=== PATIENT | female | born 1945 | race Caucasian/White ===

== ENCOUNTER → 2023-09-20 12:38 | Outpatient (REF) | payer OTHER, SELFPAY | LOC: HWWDC 12:38 | PROVIDERS: ATTENDING PHYSICIAN Internal Medicine | DX: Z12.31 Encounter for screening mammogram for malignant neoplasm of breast (principal) | CPT/HCPCS: 77063; 77067 ==

== ENCOUNTER → 2024-02-24 14:46 | Outpatient (REF) | payer OTHER, SELFPAY | LOC: HWRAD 14:46 | PROVIDERS: ATTENDING PHYSICIAN Internal Medicine | DX: M85.89 Other specified disorders of bone density and structure, multiple sites (principal) | CPT/HCPCS: 77080 ==

== ENCOUNTER → 2024-06-19 13:05 | Outpatient (REF) | payer OTHER, SELFPAY | LOC: RAD 13:05 | PROVIDERS: ATTENDING PHYSICIAN Internal Medicine | DX: R10.31 Right lower quadrant pain (principal) | CPT/HCPCS: 74177; Q9967 ==

== ENCOUNTER 2024-06-19 21:14 | Day surgery (SDC) | payer OTHER, SELFPAY ==
[2024-06-19] VITALS (7 sets, daily range): BP systolic 074–185; BP diastolic 60–95; BMI 26.5; BMI 26.7
[2024-06-19 18:21] LABS: % Basophils 0.2 % (0-2); % Eosinophils 0.3 % (0-6); % Immature Granulocytes 0.4 % (0-0.5); % Lymphocytes 9.7 % (20.5-51.1); % Monocytes 6.5 % (1.7-9.3); % Neutrophils 82.9 % (42.2-75.2); Absolute Immature Granulocytes 0.1 10^3/uL (0-0.05); Absolute Lymphocytes 1.3 10^3/uL (1.2-3.4); Absolute Monocytes 0.8 10^3/uL (0.1-0.6); Absolute Neutrophils 10.7 10^3/uL (1.4-6.5); Hematocrit 41.6 % (37.0-47.0); Hemoglobin 14.8 g/dL (12.0-16.0); Mean Corp Hgb Conc. 35.6 g/dL (33.0-37.0); Mean Corpuscular Hgb 30.9 pg (27.0-31.0); Mean Corpuscular Volume 86.8 fL (81.0-99.0); Nucleated Red Blood Cells % 0 %; Platelet Count 221 10^3/uL (130-400); Red Blood Cell Count 4.79 10^6/uL (4.20-5.40); Red Cell Dist. Width 13.2 % (11.5-14.5); White Blood Cell Count 12.9 10^3/uL (4.8-10.8)
[2024-06-19 18:46] LABS: ALT (SGPT) 49 U/L (0-35); AST (SGOT) 32 U/L (14-36); Albumin 4.7 g/dl (3.5-5.0); Alkaline Phosphatase 80 U/L (38-126); Blood Urea Nitrogen 14 mg/dl (7-17); Calcium 10.3 mg/dl (8.4-10.2); Carbon Dioxide 29 mmol/L (22-30); Chloride 88 mmol/L (98-107); Glucose 138 mg/dl (70-99); Potassium 3.8 mmol/L (3.5-5.1); Sodium 127 mmol/L (135-145); Total Bilirubin 1.7 mg/dl (0.2-1.3); Total Protein 7.7 g/dl (6.3-8.2); eGFR > 60.00
--- NOTE | 2024-06-19 18:53 | EDRN ---
this RN called IV team, this RN attempted to place PIV x2 with no success
--- NOTE | 2024-06-19 19:10 | ED.GENMED ---
History of Present Illness
General
Chief Complaint: Abdominal Pain
Source: patient
Exam Limitations: none
Time Seen by Provider: 06/19/24 18:42
Nursing documentation reviewed up to this point in time: agreed with
History of Present Illness
History of Present Illness:
The patient is a 78-year-old female with history hypertension, hyperlipidemia, hypothyroid presenting to the emergency department with right lower abdominal pain and CT scan performed outpatient which showed appendicitis. Patient states yesterday
afternoon she started with pain in her mid abdomen which then seem to migrate down to the right lower quadrant. She states the pain is a 5/10 in intensity. Patient denies any associated fever, chills, nausea, or vomiting. She has had little
appetite and states she last ate a very thin small piece of toast around 4 AM this morning. She has not had anything to eat/drink since.
Patient saw her primary care this afternoon who referred her to CAT scan for further evaluation. She was contacted that her CT scan showed appendicitis and that she should head to the emergency department.
Patient is on any blood thinners. No history of abdominal surgeries.
Review of Systems
Review of Systems
Allergies reviewed?: Yes
All Other Systems: ROS reviewed and negative except as documented in HPI and ROS
Phy Exam
Physical Exam
Physical Exam:
Vitals: Hypertensive, otherwise stable vital signs. Afebrile
General: Patient is well appearing, no acute distress. Nontoxic appearing
Skin: Warm and dry, no rashes or lesions
Head: Normocephalic, atraumatic
Eyes: Sclera nonicteric. EOMs intact. No nystagmus.
Throat: Protecting airway
Neck: Normal ROM, no cervical spine tenderness, no meningismus
Cardiac: Regular rate and rhythm, no murmurs.
Pulm: Normal respiratory effort, no wheezes, rales, rhonchi heard on exam.
Abdomen: Abdomen soft. Moderate tenderness in right lower quadrant McBurney's point with voluntary guarding. No rebound tenderness. No CVA tenderness or rash.
Extremities: No evidence of cyanosis or edema. Palpable distal pulses bilaterally
Neuro: AAOx3. Grossly intact.
Psychiatric: Normal affect.
Course
Orders/Labs/Results
Orders:
Orders
06/19/24 Dinner
NPO
Allow oral meds: Yes
Allow clear liquids: No
NPO with Ice Chips: Yes
06/19/24 18:16
CMP [Comprehensive Metabolic Panel] Urgent
Complete Blood Count/With Diff Urgent
06/19/24 19:05
Electrocardiogram (*1) Urgent
Reason for Study: PreOp
EKG- Treatment ONCE
0.9% Sodium Chloride 1000 ml [Nss] 1,000 ml IV BOLUS
Ketorolac [Toradol] 15 mg IV NOW STA
06/19/24 19:43
Piperacillin/Tazo 3.375 Gram [Zosyn] 3.375 gram in 50 ml IV NOW
06/19/24 20:43
Admit/Transfer Patient As Directed
Co-Sign Provider:
Level of Care: Inpatient admission
Assign to:: Medical/Surgical
Physician / Group: General Surgery
Diagnosis: Acute appendicitis
Reason for Hospitalization: Pain control, IV antibiotics, Surgery
Expected length of stay greater than two midnights?: Yes
ELOS- Estimated Length of Stay in days: 2
I certify the patient meets the requirements for IP care: Yes
06/19/24 20:44
PRN Pain Medication Management As Directed
May give lesser potent ordered pain med per pt: Yes
preference::
Protocol:: Medication orders for pain may be administered in a
manner that supports deferring to patient preference
when the pt is:
- Requesting an ordered lesser potent pain medication.
Least to most potent pain medications are defined
as: acetaminophen < NSAID < tramadol < opioids
(morphine, oxycodone, hydromorphone).
- Requesting a lesser dose of the same medication IF
ORDERED.
- Requesting a less intrusive route of administration
if both routes are prescribed by the provider (PO <
IV).
06/19/24 20:46
Code Status As Directed
Resuscitation Status: Full Code
06/19/24 22:00
Flush (0.9% Sodium Chloride) [Flush (Nss)] See Dose Instructions IV PER PROTOCOL
06/19/24 22:03
0.9% Sodium Chloride 1000 ml [Nss] 1,000 ml IV 100 mls/hr
Acetaminophen [Tylenol] 650 mg PO Q4HPRN PRN
Benzocaine/Menthol [Anesthetic Lozenge] 1 lozenge PO Q4HPRN PRN
Gabapentin [Neurontin] 100 mg PO BID
Melatonin 5 mg PO HSPRN PRN
Ondansetron Injectable [Zofran] 4 mg IV Q6HPRN PRN
06/19/24 22:03
Activity As Directed
Activity Level: Out of Bed-Early Mobility
Bladder Scan As Directed
Follow Bladder Retention/Intermittent Cath Algorithm?: Yes
PRN if no void in __ hours: 6
Frequency: Per Retention Algorithm
If Bladder Scan Result >: 400
then:: Straight cath
Intake/ Output As Directed
Frequency: Per unit guidelines
Pneumatic Compression Sleeves As Directed
Type: Knee high
Straight Cath As Directed
Frequency: Per Retention Algorithm
Additional Instructions: as per intermittent urinary catheter algorithm
Vital Signs As Directed
Frequency: Per unit guidelines
Weight As Directed
Frequency: Once
DX Deep Vein Thrombosis Video Routine
06/19/24 22:08
HYDROmorphone [Dilaudid] 0.25 mg IV Q2HPRN PRN
HYDROmorphone [Dilaudid] 0.5 mg IV Q2HPRN PRN
06/20/24 06:00
Basic Metabolic Panel IN AM
Complete Blood Count/No Diff IN AM
06/20/24 08:00
Artificial Tears (Pf) [Refresh Eye Drops (Pf)] 2 drops BOTH EYES BID
Famotidine [Pepcid] 20 mg PO BID
Metoprolol Xl [Toprol Xl] 50 mg PO DAILY
Rosuvastatin Calcium [Crestor] 5 mg PO DAILY
Venlafaxine Extended Release [Effexor Xr] 75 mg PO DAILY
06/20/24 18:00
Enoxaparin Sodium [Lovenox] 40 mg SC QPM
Abnormal Lab Results
06/19/24
18:16
WBC 12.9 H 10^3/uL
(4.8-10.8)
Abs Immat Gran (auto) 0.1 H 10^3/uL
(0-0.05)
Absolute Neuts (auto) 10.7 H 10^3/uL
(1.4-6.5)
Absolute Monos (auto) 0.8 H 10^3/uL
(0.1-0.6)
Neutrophils % 82.9 H %
(42.2-75.2)
Lymphocytes % 9.7 L %
(20.5-51.1)
Sodium 127 L mmol/L
(135-145)
Chloride 88 L mmol/L
(98-107)
Glucose 138 H mg/dl
(70-99)
Calcium 10.3 H mg/dl
(8.4-10.2)
Total Bilirubin 1.7 H mg/dl
(0.2-1.3)
ALT 49 H U/L
(0-35)
06/19/24 18:16
06/19/24 18:16
Vital Signs
Initial and Last Documented VS:
Initial Vital Signs
Temp Pulse Resp BP Pulse Ox
98.3 F 91 18 158/81 98
03/28/25 18:03 06/19/24 18:03 06/19/24 18:03 06/19/24 18:03 06/19/24 18:03
Last Documented Vital Signs
Temp Pulse Resp BP Pulse Ox
99.4 F 92 16 161/95 96
06/19/24 23:15 06/19/24 23:15 06/19/24 23:15 06/19/24 23:15 06/19/24 23:15
MDM/Problems Addressed
Differential Diagnosis Includes:
Not limited to: Appendicitis, intra-abdominal abscess, perforated appendicitis, diverticulitis, etc.
MDM/Problems Addressed:
78-year-old female with 1 day of right lower abdominal pain associated with anorexia found to have appendicitis on outpatient CT scan this afternoon. No fevers or vomiting. Patient has stable vital signs on arrival and is afebrile. Physical exam
as above. Patient very well-appearing, nontoxic. Abdomen is soft with moderate tenderness in right lower quadrant at McBurney's point. No rebound tenderness or guarding. Did review CT scan report performed outpatient which shows acute
appendicitis without perforation or abscess. Labs drawn in ED significant for leukocytosis of 12.9. Otherwise no clinically significant abnormalities. Will treat pain and give IV fluids. IV Zosyn initiated in emergency department. Case
discussed with general surgery, Dr. Ng who will admit to his service. Plan for n.p.o., OR tonight or tomorrow. Based on availability patient accepted to general surgery service in stable condition. Pain well-controlled at that time. Patient
comfortable with plan.
Chronic conditions affecting care:
Hypertension
Acute Exacerbation and/or Progression of Chronic Illness:
Acutely hypertensive
*Pulse Oximetry
Patient hypoxic: no
*EKG
Interpreted by ED Provider?: Yes
EKG Intrepretation Date: 06/19/24
Interpretation: normal
Comparison EKG: changes noted
Heart Rate: 83
Rate: normal
Rhythm: sinus
[place]: normal axis
Interval: normal QT interval
QRS Pattern: normal QRS
Ischemia: non-specific ST changes
*Tyre Fitter Interpretation
Rate: normal
Interpretation: normal
Heart Rate: 86
Rhythm: sinus
*Critical Care Note
Total Time (30-74mins, 75-104mins- exclusive of procedures): Not Applicable
Data Reviewed
Review of Other/Old Records Reveals: Radiology Studies (Outpatient CT scan performed 06/19/2024-acute appendicitis without evidence of perforation or abscess)
Source: previous radiology exam
Patient Management
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
Escalation/DeEscalation of care consider admission/obs:
Admit for IV antibiotics, n.p.o., OR tonight/tomorrow for appendectomy
ED Attending Note
-
Portions of this chart may have been created with voice recognition software.� Occasional wrong word or��sound alike� substitutions may have occurred due to the inherent limitations of voice recognition software.
Discharge Plan
Departure
Patient Disposition: Admit
Date of Disposition: 06/19/24
Time of Disposition: 19:42
Admit to doctor: Dr. Ng
Presentation/result/management discussed w/ accepting MD/DO: Surgery
Discharge Problem:
Acute appendicitis
Interventions
Interventions:
*Risk Screen - Suicide Last Done: 06/19/24 18:32
*General Assessment Last Done: 06/19/24 18:32
*Neglect/Abuse Screening Last Done: 06/19/24 18:32
*ED- Fall Risk Assessment Last Done: 06/19/24 18:32
*ED COVID-19 Vaccine History Last Done: 06/19/24 18:03
*Nursing Disposition Last Done: 06/19/24 22:12
PR-Pawcos-Ryabtsecoq Assessment Last Done: 06/19/24 18:32
Discharge Date and Time
Discharge Date/Time: 06/19/24 22:13
[2024-06-19] MEDS: TORADOL 15 MG IV (19:32)
[2024-06-19] MEDS: NSS 1000 IV ×2 (19:33→22:59)
[2024-06-19] MEDS: ZOSYN 50 IV (19:52)
--- NOTE | 2024-06-19 20:15 | HPS.HSE ---
Addendum entered and electronically signed by Reji Ng MD 06/20/24 07:44:
Patient is a 78 yo F with a PMH of GERD, HTN, HLD, hypothyroidism, chronic pain, s/p laparoscopic tubal ligation, and s/p RIGHT total hip arthroplasty. Ms. Whatley presents with 24 to 48 hours of RLQ abdominal pain. She states that her symptoms
began initially on afternoon as a generalized more achy abdominal pain. Her symptoms localized to the RLQ over the next 12 hours prompting presentation to her PCP on Saturday (06/19). An outpatient CT scan was performed which demonstrated
appendicitis and prompting referral to the emergency department. She denies any fevers or chills. She denies any nausea or vomiting. She does report some looser stools on , but otherwise denies any fluctuations in GI function. She does
not have any chronic GI issues. She has had a prior colonoscopy. Family history notable for son who from gastric cancer.
Gen: NAD
Abd: soft, obese, tender to palpation in RLQ, ND, no diffuse peritonitis, prior incisions well healed
Labs and CT scan reviewed.
Patient is a 78 yo F p/w acute appendicitis
The natural history and pathophysiology of appendicitis was discussed. CT scan imaging and anatomy were reviewed. Options for management including medical management with antibiotics versus surgical management with appendectomy were considered and
discussed. The pros and cons of both approaches was discussed. Specifically, we discussed failure of medical management and future episodes appendicitis versus surgical risks. Ms. Whatley would like to proceed with appendectomy.
Plan for a laparoscopic appendectomy. The procedure itself, as well as the risks, benefits, and alternatives was discussed. Specifically, we discussed the risks of bleeding, infection, injury to surrounding structures (bowel, bladder), staple line
leak, need for open procedure. Typical post procedure recovery was discussed. All questions answered. Consent signed.
-- Laparoscopic appendectomy
-- NPO, IVF
-- Antibiotics: Zosyn
-- Pain control: Tylenol and IV Dilaudid as needed
Original Note:
Family Physician
-
Family Physician: Kristi Barone DO
Chief Complaint
-
Abdominal pain
History of Present Illness
Patient is a 74-year-old female with a past medical history significant for hypertension, hyperlipidemia, hypothyroid, GERD, who presents to the emergency department with right lower abdominal pain. Patient states that yesterday afternoon, she
started with pain in her mid abdomen that migrated down to her right lower quadrant. She rates pain at 5 out of 10. She stated she did have some nausea yesterday but has not had any nausea today. Patient denies any fever, chills, vomiting. She has a
very poor appetite and has not eaten anything since 4 am today. Patient saw her primary care provider this afternoon who referred her for a CT scan for further evaluation. She was contacted that her CT scan showed appendicitis and that she should
head to the emergency department for further evaluation and treatment. Patient is not on any blood thinners. No history of abdominal surgeries.
In the emergency department, labs reviewed leukocytosis, WBC 12.9. Hyponatremia, sodium 127. Chloride 88. Total bilirubin 1.7. AST 32, ALT 49. Vital signs stable, acute hypertension BP 174/64, HR 88, Resp 22, temp 97.8, O2 sat 99% on room air.
Patient received 1L NSS, Toradol 15 mg IV x 1 for pain. IV antibiotics, Zosyn 3.375 IV x [address] Abdomen/Pelvis Impression:
Findings consistent with acute appendicitis with moderate periappendiceal inflammation. No evidence of perforation nor abscess formation. Associated reactive change of the cecal tip and terminal ileum. All new.
Moderate fecal material throughout the colon. Progressed
Multiple hypodense small hepatic lesions likely cysts. Hemangiomas not excluded. Increased in size and number.
Simple right renal cyst. Enlarged. Too small to characterize hypodense left renal lesion likely benign cysts.
Findings suggesting chronic pancreatitis. Progressed.
Moderate hiatal hernia. New.
EKG: NSR, HR 83.
ER provider discussed case with Dr. Ng, General Surgery, who is accepting the patient to his service. Tentative plan: Possible OR tonight, waiting to see schedule. Continue NPO, Zosyn, Tylenol, and Dilaudid.
Medical History
Past Medical History
Past Medical History: Reports GERD, HTN, Hypothyroidism and Other (Hyperlipidemia)
Past Surgical History: Reports Gynocological (tubal ligation) and Orthopedic (Right total hip arthroplasty, 09/2017)
Social History
Tobacco: Non-smoker
Alcohol: None
Drug: None
Personal:
Living: With Family
Employment: Retired
Family History
Family History: Not pertinent
Allergies / Home Medications
Allergies reflects when Allergies were last updated in [employer].
Home Medications with original date entered in [employer]
Allergy/Medication List:
Patient Allergies
Allergy/AdvReac Type Severity Reaction Status Date / Time
bacitracin Allergy Severe Swelling, Verified 06/19/24 18:09
itching
gramicidin D Allergy Severe Swelling, Verified 06/19/24 18:09
itching
neomycin Allergy Severe Swelling, Verified 06/19/24 18:09
itching
polymyxin B Allergy Severe Swelling, Verified 06/19/24 18:09
itching
Bandaid Allergy Skin Uncoded 06/19/24 18:09
redness,
itching
latex Allergy Rash, Uncoded 06/19/24 18:09
itching
Home Medications
�Medication �Instructions �Recorded
melatonin 5 mg tablet 0.5 - 1 tab PO HS PRN sleep 09/20/17
Claritin: 1 tab PO DAILY 09/24/17
Famotidine 1 tab PO BID 09/24/17
chlorthalidone 25 mg tablet 25 mg PO DAILY 09/24/17
cholecalciferol (vitamin D3) 25 1,000 unit PO DAILY 09/24/17
mcg (1,000 unit) capsule (Vitamin
D3)
estradiol 2 mg (7.5 mcg/24 hour) 1 vag.ring VAG .Q 90 DAYS 09/24/17
vaginal ring (Estring)
gabapentin 100 mg capsule 100 mg PO TID 09/24/17
glucosamine HCl 1,500 mg tablet 1,500 mg PO DAILY 09/24/17
metoprolol tartrate 50 mg tablet 50 mg PO DAILY 09/24/17
multivitamin (One Daily 1 ea PO QPM 09/24/17
Multivitamin tablet)
propylene glycol 0.6 % eye drops 2 drops BOTH EYES BID 09/24/17
(Systane Balance)
acetaminophen 325 mg tablet 650 mg (2 x 325 mg) PO Q4HPRN PRN 10/22/17
pain, fever #60 tabs
docusate sodium 100 mg capsule 100 mg PO BIDPRN PRN constipation 10/22/17
#20 caps
rosuvastatin 5 mg tablet 5 mg PO DAILY 06/19/24
venlafaxine 50 mg tablet 50 mg PO DAILY 06/19/24
Review of Systems
-
History Source: Patient
A 12 point ROS was completed and negative except as noted: Yes
Constitutional: Reports Other (poor appetite)
EENT: Reports No Symptoms
Respiratory: Reports No Symptoms
Cardiac: Reports No Symptoms
Abdomen/GI: Reports Abdominal Pain (right lower quadrant)
: Reports No Symptoms
Musculoskeletal: Reports No Symptoms
Skin: Reports No Symptoms
Neurological: Reports No Symptoms
Endocrine: Reports No Symptoms
Hematologic/Lymphatic: Reports No Symptoms
Psych: Reports No Symptoms
Physical Exam
Vital Signs
Vital Signs
Temp Pulse Resp BP Pulse Ox
97.8 F 88 22 174/64 80
06/19/24 18:32 06/19/24 18:45 06/19/24 18:45 06/19/24 18:37 06/19/24 18:37
Physical Exam
General: Comfortable, Pain (right lower quadrant abdomen) and Poor Appetite
HEENT: NormoCephalic, Moist mucous membranes and PERRLA
Respiratory: Clear
Cardiac: S1/S2 and Regular Rhythm
GI: Normal Bowel Sounds and Tender (right lower quadrant, tender to palpation)
Musculoskeletal: No Edema
Skin: Warm and Dry
Neuro: AO x 3
Psych: Calm and Intact Judgment/Insight
Laboratory Results
-
06/19/24 18:16
06/19/24 18:16
Laboratory Results
Total Bilirubin 1.7 mg/dl (0.2-1.3) H 06/19/24 18:16
AST 32 U/L (14-36) 06/19/24 18:16
ALT 49 U/L (0-35) H 06/19/24 18:16
Alkaline Phosphatase 80 U/L (38-126) 06/19/24 18:16
Data Reviewed
-
CT Scan: Report Reviewed by me and Discussed with Patient
Lab Data: Labs Reviewed by me
Impression/Plan
-
IMPRESSION:
Patient is a 74-year-old female with a past medical history significant for hypertension, hyperlipidemia, hypothyroid, GERD, who presents to the emergency department with right lower abdominal pain.
PLAN:
Acute appendicitis
- Admit to Med/Surg, Dr. Ng, General Surgery service
- NPO
- IV fluids NSS @ 100 mls/hr
- Pain medication: Tylenol, Dilaudid
- Antiemetics: Zofran
- IV Zosyn
Hyponatremia
- IV fluids
- Follow up am labs.
HTN/HLD
- Continue home medications: Metoprolol, Rosuvastatin
- Chlorthalidone on hold tll post op
Hypothyroidism
- Continue home medication: Levothyroxine
GERD
- Continue home medication: Famotidine
Chronic pain
- Continue home medications: Gabapentin, Venlafaxine
Home medication doses verified by Pharmacy.
DVT Prophylaxis: SCD's/Lovenox post op
Code Status: Full code
[2024-06-19] MEDS: NEURONTIN 100 MG PO (22:57)
[2024-06-19] MEDS: MELATONIN 5 MG PO (22:57)
[2024-06-19] MEDS: TOPROL XL 50 MG PO (23:14)
[2024-06-20] VITALS (10 sets, daily range): BP systolic 106–136; BP diastolic 37–73
[2024-06-20] MEDS: ZOSYN 50 IV ×2 (01:45→14:26)
[2024-06-20] MEDS: SYNTHROID 75 MCG PO (06:25)
--- NOTE | 2024-06-20 07:44 | W.SUR.PREOP ---
Pre-Operative Surgical Note
-
I have examined this patient prior to the performance of the scheduled procedure.
The patient's condition is unchanged from the time of the current History and
Physical and the patient is able to undergo the scheduled procedure.
[2024-06-20 07:46] LABS: Hematocrit 37.8 % (37.0-47.0); Hemoglobin 13.2 g/dL (12.0-16.0); Mean Corp Hgb Conc. 34.9 g/dL (33.0-37.0); Mean Corpuscular Volume 88.7 fL (81.0-99.0); Mean Platelet Volume 10.7 fL (7.4-10.4); Platelet Count 231 10^3/uL (130-400); Red Blood Cell Count 4.26 10^6/uL (4.20-5.40); Red Cell Dist. Width 13.3 % (11.5-14.5); White Blood Cell Count 10.8 10^3/uL (4.8-10.8)
[2024-06-20 08:01] LABS: Blood Urea Nitrogen 13 mg/dl (7-17); Carbon Dioxide 28 mmol/L (22-30); Chloride 93 mmol/L (98-107); Estimated Creatinine Clearance 49 ml/min; Glucose 111 mg/dl (70-99); Potassium 3.3 mmol/L (3.5-5.1); Sodium 133 mmol/L (135-145); eGFR > 60.00
[2024-06-20] MEDS: ZOSYN IV (08:14)
--- NOTE | 2024-06-20 08:51 | W.IMMPOSTOP ---
Surgical Immed Post Op Note
-
Primary Surgeon: Bereniec
Assisting Surgeon: None
Pre-op Diagnosis: Acute appendicitis
Post-op Diagnosis: Acute appendicitis
Procedure Performed: Laparoscopic appendectomy
Anesthesia Type: General
Specimen / Cultures:
1. Appendix
Estimated Blood Loss: 7 cc
Complications: None
Operative Findings:
1. Dilated and inflamed appendix with localized adhesions, no evidence of perforation
2. Mesentery with [employer], base with klein load stapler
[2024-06-20] MEDS: NEURONTIN 100 MG PO (12:31)
[2024-06-20] MEDS: PEPCID 20 MG PO (12:32)
[2024-06-20] MEDS: CRESTOR 5 MG PO (12:32)
[2024-06-20] MEDS: EFFEXOR XR 75 MG PO (12:32)
[2024-06-20] MEDS: REFRESH EYE DROPS (PF) 2 DROPS BOTH EYES (12:33)
[2024-06-20] MEDS: KCL 40 MEQ PO (12:33)
[2024-06-20] MEDS: NSS 1000 IV (12:34)
[2024-06-20] MEDS: TYLENOL 650 MG PO (14:31)
--- NOTE | 2024-06-20 14:57 | W.DS.TRANS ---
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
-
Discharge Instructions:
Discharge Diagnosis/Procedures Laparoscopic appendectomy
Diet Regular
Activity No strenuous activity
Additional Activity No heavy lifting (>20 lbs) for 2 weeks
postoperatively
Driving Restrictions No driving if too sore or taking narcotics
Bathing Restrictions OK to Shower
Wound Care Keep incisions clean and dry. Glue will flake
off in 2 to 3 weeks. Stitches will dissolve.
Use ice to the abdomen to reduce any bruising or
swelling.
Instructions:
Stand-Alone Forms:
Changes to Home Medications: No
Discharge Medications:
DC Medications w/original date entered in [employer]
melatonin 5 mg tablet 0.5 - 1 tab PO HS PRN sleep 09/20/17
Claritin: 1 tab PO DAILY 09/24/17
Famotidine 1 tab PO BID 09/24/17
chlorthalidone 25 mg tablet 25 mg PO DAILY 09/24/17
cholecalciferol (vitamin D3) 25 mcg (1,000 unit) capsule (Vitamin D3) 1,000 unit PO DAILY 09/24/17
estradiol 2 mg (7.5 mcg/24 hour) vaginal ring (Estring) 1 vag.ring VAG .Q 90 DAYS 09/24/17
gabapentin 100 mg capsule 100 mg PO TID 09/24/17
glucosamine HCl 1,500 mg tablet 1,500 mg PO DAILY 09/24/17
metoprolol tartrate 50 mg tablet 50 mg PO DAILY 09/24/17
multivitamin (One Daily Multivitamin tablet) 1 ea PO QPM 09/24/17
propylene glycol 0.6 % eye drops (Systane Balance) 2 drops BOTH EYES BID 09/24/17
acetaminophen 325 mg tablet 650 mg (2 x 325 mg) PO Q4HPRN PRN pain, fever #60 tabs 10/22/17
docusate sodium 100 mg capsule 100 mg PO BIDPRN PRN constipation #20 caps 10/22/17
levothyroxine 75 mcg tablet 75 mcg PO DAILY 06/19/24
rosuvastatin 5 mg tablet 5 mg PO DAILY 06/19/24
venlafaxine 50 mg tablet 50 mg PO DAILY 06/19/24
Home Medication Changes
Pending Results: No
== END 2024-06-20 16:58 | disposition home or self-care (01) ==
LOC: PACU 21:14
PROVIDERS: Emergency Medicine; Nurse Practitioner Family; ATTENDING PHYSICIAN Surgery; EMERGENCY PHYSICIAN Emergency Medicine; FAMILY PHYSICIAN Internal Medicine
PROC: 0DTJ4ZZ Resection of Appendix, Percutaneous Endoscopic Approach (ICD-10-PCS; 2024-06-20)
DX: K35.80 Unspecified acute appendicitis (principal); E87.1 Hypo-osmolality and hyponatremia; K21.9 Gastro-esophageal reflux disease without esophagitis; I10 Essential (primary) hypertension; E78.49 Other hyperlipidemia; E03.9 Hypothyroidism, unspecified; E66.9 Obesity, unspecified; G89.29 Other chronic pain; K44.9 Diaphragmatic hernia without obstruction or gangrene; K76.9 Liver disease, unspecified; Z96.641 Presence of right artificial hip joint; Z91.040 Latex allergy status; Z88.3 Allergy status to other anti-infective agents; Z88.1 Allergy status to other antibiotic agents; Z80.0 Family history of malignant neoplasm of digestive organs; Z79.899 Other long term (current) drug therapy; Z68.26 Body mass index [BMI] 26.0-26.9, adult
CPT/HCPCS: 44970; 88304; 74177; 80048; 80053; 85025; 85027; 93005; 96361; 96365; 96375; 99285; C1776; Q9967

== ENCOUNTER → 2024-10-27 11:16 | Outpatient (REF) | payer OTHER, SELFPAY | LOC: HWWDC 11:16 | PROVIDERS: ATTENDING PHYSICIAN Internal Medicine | DX: Z12.31 Encounter for screening mammogram for malignant neoplasm of breast (principal) | CPT/HCPCS: 77063; 77067 ==